=== PATIENT | male | born 1990 | race Caucasian/White ===

== ENCOUNTER 2016-07-23 13:11 | Emergency (ER) | payer MEDICAID ==
[~2016-07-23] VITALS: Ht 190.5 cm; Wt 67.5 kg
[~2016-07-23 13:11] MED LIST: BACL-19; DIAZ2TAB PO; HYDR-3241; MORP15TA39 PO; NORT10CA; OXYC10TA6 PO; OXYC7.5T; [UNRECOGNIZED DRUG - CODE]
[2016-07-23 13:12] VITALS: BP 112/81
== END 2016-07-23 15:00 | disposition home or self-care (01) ==
LOC: ED 14:40
DX: S76.012A Strain of muscle, fascia and tendon of left hip, initial encounter (principal); M54.16 Radiculopathy, lumbar region; G89.29 Other chronic pain; X58.XXXA Exposure to other specified factors, initial encounter; Y93.89 Activity, other specified; Y92.89 Other specified places as the place of occurrence of the external cause; Y99.9 Unspecified external cause status
CPT/HCPCS: 99284

== ENCOUNTER 2016-09-15 09:39 | Emergency (ER) | payer MEDICAID ==
[~2016-09-15] VITALS: Ht 190.5 cm; Wt 68.4 kg
[2016-09-15] MEDS ORDERED: HYDROcodone/APAP 5/325 TABLET PO ONE (10:30)
[2016-09-15] MEDS ORDERED: HYDROcodone/APAP 5/325 TABLET ONE (10:33)
[2016-09-15 11:05] VITALS: BP 128/77
== END 2016-09-15 11:07 | disposition home or self-care (01) ==
LOC: ED 10:57
DX: S70.11XA Contusion of right thigh, initial encounter (principal); F17.210 Nicotine dependence, cigarettes, uncomplicated; X58.XXXA Exposure to other specified factors, initial encounter; Y93.89 Activity, other specified; Y92.89 Other specified places as the place of occurrence of the external cause; Y99.8 Other external cause status
CPT/HCPCS: 99283

== ENCOUNTER 2017-04-05 21:00 | Emergency (ER) | payer MEDICAID ==
[~2017-04-05] VITALS: Ht 190.5 cm; Wt 75.0 kg
[~2017-04-05 21:00] MED LIST changes: +MORP-52 PO; -MORP15TA39 PO
[2017-04-05] MEDS ORDERED: TRAM100T13 PO (21:19)
[2017-04-05] MEDS ORDERED: MORP-52 PO (21:19)
[2017-04-05] MEDS ORDERED: SODIUM CHLORIDE FLUSH 10ML SYR IVF ONE (21:30)
[2017-04-05] MEDS ORDERED: MORPHINE SULFATE 4 MG/ML, 1ML IVPush PRN (21:30)
[2017-04-05] MEDS ORDERED: ONDANSETRON 2MG/ML, 2ML ONE (21:30)
[2017-04-05] MEDS ORDERED: PROMETHAZINE 25 MG/ML, 1ML IM ONE (21:30)
[2017-04-05] MEDS ORDERED: MORPHINE SULFATE 4 MG/ML, 1ML ONE (21:30)
[2017-04-05] MEDS ORDERED: SODIUM CHLORIDE 0.9% 1,000ML IV ONE (21:30)
[2017-04-05] MEDS ORDERED: DIAZEPAM 5 MG/ML, 2ML IVPush ONE (21:30)
[2017-04-05] MEDS ORDERED: PROMETHAZINE 25 MG/ML, 1ML ONE (21:30)
[2017-04-05] MEDS ORDERED: KETOROLAC 30 MG/1 ML IVPush ONE (21:30)
[2017-04-05] MEDS ORDERED: KETOROLAC 30 MG/1 ML ONE (21:30)
[2017-04-05] MEDS ORDERED: ONDANSETRON 2MG/ML, 2ML IVPush ONE (21:30)
[2017-04-05 21:43] LABS: BASOPHILS # (AUTO) 0.02 x10^3/uL (0-0.1); BASOPHILS % (AUTO) 0 % (0-1); EOSINOPHILS % (AUTO) 1 % (1-7); LYMPHOCYTES # (AUTO) 1.32 x10^3/uL (1-3.4); LYMPHOCYTES % (AUTO) 18 % (22-44); MD NO; MEAN CORPUSCULAR HEMOGLOBIN 30.4 pg (27.5-34.5); MEAN CORPUSCULAR HGB CONC 34.3 g/dL (33.2-36.2); MEAN CORPUSCULAR VOLUME 88.8 fL (81-97); MEAN PLATELET VOLUME 8.2 fL (7.4-10.4); MONOCYTES # (AUTO) 0.78 x10^3/uL (0.2-0.8); MONOCYTES % (AUTO) 11 % (2-9); NEUTROPHILS # (AUTO) 5.05 x10^3/uL (1.8-6.8); NEUTROPHILS % (AUTO) 69 % (42-75); PLATELET COUNT 226 x10^3/uL (130-400); RED BLOOD COUNT 5.54 x10^6/uL (4.38-5.82); RED CELL DISTRIBUTION WIDTH 12.7 % (9.4-14.8)
[2017-04-05 21:52] LABS: ALBUMIN 4.1 g/dL (3.4-5.0); ANION GAP 6 mmol/L (5-15); CALCIUM 8.7 mg/dL (8.5-10.1); CHLORIDE 110 mmol/L (98-107); CREATININE 1.09 mg/dL (0.7-1.3)
[2017-04-05 22:38] LABS: AMPHETAMINE SCREEN, URINE Negative (Negative); BARBITURATE SCREEN, URINE Negative (Negative); BENZODIAZEPINE SCREEN, URINE Negative (Negative); CANNABINOID SCREEN, URINE Negative (Negative); COCAINE SCREEN, URINE Negative (Negative); METHADONE SCREEN, URINE Negative (Negative); OPIATE SCREEN, URINE Positive (Negative)
[2017-04-05 22:55] LABS: MICROSCOPIC NOT IND
[2017-04-05 22:59] LABS: CULTURE INDICATED? NO
[2017-04-05] MEDS ORDERED: GADOBUTROL 7.5 MMOL/7.5 ML PFS ONE (23:23)
[2017-04-06 00:15] VITALS: BP 122/78
[2017-04-06] MEDS ORDERED: LIDOCAINE 1%, 10ML ONE (00:20)
== END 2017-04-06 00:33 | disposition home or self-care (01) ==
LOC: ED 21:35
DX: G89.29 Other chronic pain (principal); M54.5 Low back pain
CPT/HCPCS: 36415; 72158; 80048; 80307; 81003; 82040; 85025; 96361; 96372; 96374; 96375; 99285; A9585; J1885; J2405; J2550; J7030; G0479

== ENCOUNTER 2018-01-03 16:53 | Emergency (ER) | payer MEDICAID, OTHER ==
[~2018-01-03] VITALS: Ht 190.5 cm; Wt 68.1 kg
[~2018-01-03 16:53] MED LIST changes: +TRAM100T13 PO
[2018-01-03 17:08] VITALS: BP 128/73
[2018-01-03] MEDS ORDERED: LIDOCAINE 1%-EPI 1:100K, 20ML ONE (17:42)
[2018-01-03] MEDS ORDERED: BUPIVACAINE 0.25% ONE (17:42)
[2018-01-03] MEDS ORDERED: BUPIVACAINE/PF-EPI 0.25% 1:200K SQ ONE (18:00)
[2018-01-03] MEDS ORDERED: LIDOCAINE 1%-EPI 1:100K, 20ML SQ ONE (18:00)
[2018-01-03] MEDS ORDERED: HYDROcodone/APAP 5/325 TABLET ONE (18:08)
[2018-01-03] MEDS ORDERED: HYDROcodone/APAP 5/325 TABLET PO ONE (18:30)
== END 2018-01-03 18:21 | disposition home or self-care (01) ==
LOC: ED 18:00
DX: K02.9 Dental caries, unspecified (principal); K04.7 Periapical abscess without sinus; G89.29 Other chronic pain
CPT/HCPCS: 41800; 99283

== ENCOUNTER 2018-02-19 17:56 | Emergency (ER) | payer SELFPAY ==
[~2018-02-19] VITALS: Ht 190.5 cm; Wt 70.0 kg
[2018-02-19 18:06] VITALS: BP 126/86
[2018-02-19] MEDS ORDERED: HYDROcodone/APAP 5/325 TABLET ONE ×2 (18:15→19:57)
[2018-02-19] MEDS ORDERED: METHOCARBAMOL 750 MG TABLET ONE (18:15)
[2018-02-19] MEDS ORDERED: HYDROcodone/APAP 5/325 TABLET PO ONE ×2 (18:30→20:00)
[2018-02-19] MEDS ORDERED: METHOCARBAMOL 750 MG TABLET PO ONE (18:30)
[2018-02-19] MEDS ORDERED: ONDANSETRON ODT 4 MG ONE ×2 (18:50→19:58)
[2018-02-19] MEDS ORDERED: ONDANSETRON ODT 4 MG PO ONE (20:00)
[2018-02-19] MEDS ORDERED: KETOROLAC 30 MG/1 ML IM ONE (20:00)
[2018-02-19 20:54] LABS: MICROSCOPIC INDICATED
[2018-02-19 21:06] LABS: CULTURE INDICATED? NO
== END 2018-02-19 21:45 | disposition home or self-care (01) ==
LOC: ED 19:48
DX: N20.1 Calculus of ureter (principal)
CPT/HCPCS: 72050; 72110; 76770; 81001; 99285; Q0162

== ENCOUNTER 2018-03-05 12:03 | Emergency (ER) | payer SELFPAY ==
[~2018-03-05] VITALS: Ht 190.5 cm; Wt 73.0 kg
[2018-03-05] MEDS ORDERED: KETOROLAC 30 MG/1 ML ONE (12:18)
[2018-03-05] MEDS ORDERED: ONDANSETRON 2MG/ML, 2ML ONE (12:18)
[2018-03-05] MEDS ORDERED: KETOROLAC 30 MG/1 ML IVPush ONE (12:30)
[2018-03-05] MEDS ORDERED: MORPHINE SULFATE 4 MG/ML, 1ML IVPush PRN (12:30)
[2018-03-05] MEDS ORDERED: ONDANSETRON 2MG/ML, 2ML IVPush ONE (12:30)
[2018-03-05 12:34] LABS: BASOPHILS # (AUTO) 0.02 x10^3/uL (0-0.1); BASOPHILS % (AUTO) 0 % (0-1); EOSINOPHILS # (AUTO) 0.09 x10^3/uL (0-0.4); EOSINOPHILS % (AUTO) 1 % (1-7); LYMPHOCYTES # (AUTO) 1.33 x10^3/uL (1-3.4); LYMPHOCYTES % (AUTO) 13 % (22-44); MD NO; MEAN CORPUSCULAR HEMOGLOBIN 30.2 pg (27.5-34.5); MEAN CORPUSCULAR HGB CONC 34.2 g/dL (33.2-36.2); MEAN CORPUSCULAR VOLUME 88.3 fL (81-97); MEAN PLATELET VOLUME 8.1 fL (7.4-10.4); MONOCYTES # (AUTO) 0.45 x10^3/uL (0.2-0.8); MONOCYTES % (AUTO) 4 % (2-9); NEUTROPHILS # (AUTO) 8.47 x10^3/uL (1.8-6.8); NEUTROPHILS % (AUTO) 82 % (42-75); PLATELET COUNT 254 x10^3/uL (130-400); RED BLOOD COUNT 5.61 x10^6/uL (4.38-5.82); RED CELL DISTRIBUTION WIDTH 13.2 % (9.4-14.8)
[2018-03-05 12:42] LABS: ALBUMIN 4.4 g/dL (3.4-5.0); ANION GAP 14 mmol/L (5-15); CALCIUM 9.2 mg/dL (8.5-10.1); CHLORIDE 109 mmol/L (98-107); CREATININE 1.05 mg/dL (0.7-1.3)
[2018-03-05 13:14] LABS: CULTURE INDICATED? YES; MICROSCOPIC INDICATED
[2018-03-05 14:30] VITALS: BP 109/69
== END 2018-03-05 14:33 | disposition home or self-care (01) ==
LOC: ED 12:03
DX: N20.1 Calculus of ureter (principal); Z88.1 Allergy status to other antibiotic agents; F17.210 Nicotine dependence, cigarettes, uncomplicated; M54.16 Radiculopathy, lumbar region
CPT/HCPCS: 36415; 74176; 80048; 81001; 82040; 85025; 87086; 96374; 96375; 99284; J1885; J2405

== ENCOUNTER 2019-09-21 20:56 | Emergency (ER) | payer BC, OTHER ==
[~2019-09-21] VITALS: Ht 193 cm; Wt 65.4 kg
--- NOTE | 2019-09-21 21:14 | NUR ---
PT SITTING IN BED, RESPIRATIONS EVEN AND UNLABORED, TALKING WITH ERP.
[2019-09-21] MEDS ORDERED: CYCL-259 PO (21:23)
[2019-09-21] MEDS ORDERED: OXYC-295 PO (21:23)
[2019-09-21] MEDS ORDERED: PREG75CA PO (21:23)
--- NOTE | 2019-09-21 21:23 | NUR ---
PT STATES HE HAD A STOMACH ACHE YESRDAY MORNING WHEN HE WOKE UP AND HASN'T BEEN ABLE TO KEEP ANYTHING DOWN SINCE BREAKFAST YESTERDAY. PT STATES HE'S BEEN DRY-HEAVING AND HAVING LOOSE STOOLS INTERMITTENTLY TODAY. VOMIT BACK IN HAND, EDUCATED ON WHERE THE BATHROOM IS. PT UPDATE ON POC, ALL QUESTIONS ANSWERED AT THIS TIME. WILL CONTINUE TO MONITOR AND WATCH FOR ORDERS.
[2019-09-21] MEDS ORDERED: ONDANSETRON 2MG/ML, 2ML IVPush ONE (21:30)
[2019-09-21] MEDS ORDERED: SODIUM CHLORIDE 0.9% 1,000ML IVBOLUS ONE (21:30)
[2019-09-21] MEDS ORDERED: MORPHINE SULFATE 4 MG/ML, 1ML ONE ×2 (21:46→23:05)
[2019-09-21] MEDS ORDERED: ONDANSETRON 2MG/ML, 2ML ONE (21:46)
[2019-09-21 21:54] LABS: BASOPHILS # (AUTO) 0.02 x10^3/uL (0-0.1); BASOPHILS % (AUTO) 0 % (0-1); EOSINOPHILS # (AUTO) 0.16 x10^3/uL (0-0.4); EOSINOPHILS % (AUTO) 2 % (1-7); LYMPHOCYTES # (AUTO) 1.63 x10^3/uL (1-3.4); LYMPHOCYTES % (AUTO) 21 % (22-44); MD NO; MEAN CORPUSCULAR HEMOGLOBIN 31.1 pg (27.5-34.5); MEAN CORPUSCULAR VOLUME 91.4 fL (81-97); MEAN PLATELET VOLUME 8.9 fL (7.4-10.4); MONOCYTES # (AUTO) 0.52 x10^3/uL (0.2-0.8); MONOCYTES % (AUTO) 7 % (2-9); NEUTROPHILS # (AUTO) 5.63 x10^3/uL (1.8-6.8); NEUTROPHILS % (AUTO) 71 % (42-75); PLATELET COUNT 220 x10^3/uL (130-400); RED BLOOD COUNT 5.32 x10^6/uL (4.38-5.82); RED CELL DISTRIBUTION WIDTH 13.3 % (9.4-14.8)
[2019-09-21] MEDS: MORPHINE SULFATE 4 MG/ML, 1ML IVPush PRN ×2 (21:59→23:07)
[2019-09-21 22:03] LABS: ALANINE AMINOTRANSFERASE 17 U/L (12-78); ALBUMIN 3.8 g/dL (3.4-5.0); ANION GAP 7 mmol/L (5-15); CALCIUM 8.6 mg/dL (8.5-10.1); CHLORIDE 107 mmol/L (98-107); CREATININE 1.02 mg/dL (0.7-1.3)
[2019-09-21 22:05] LABS: ALKALINE PHOSPHATASE 59 U/L (45-117); BILIRUBIN,TOTAL 0.6 mg/dL (0.2-1.0); TOTAL PROTEIN 7.3 g/dL (6.4-8.2)
[2019-09-21 22:20] LABS: MICROSCOPIC INDICATED
--- NOTE | 2019-09-21 22:29 | NUR ---
PT BACK FROM IMAGING, CONDITION UNCHANGED.
[2019-09-21] MEDS ORDERED: OMNIPAQUE 350 MG/ML, 100ML BOTTLE ONE (22:31)
--- NOTE | 2019-09-21 23:01 | NUR ---
PT SITTING IN BED, WATCHING TV, NO SIGNS OF ACUTE DISTRESS, VSS, RESPIRATIONS EVEN AND UNLABORED. GIVEN WATER FOR PO CHALLENGE.
[2019-09-22 00:34] VITALS: BP 124/83
== END 2019-09-22 00:39 | disposition home or self-care (01) ==
LOC: ED 23:25
DX: A08.4 Viral intestinal infection, unspecified (principal); R19.7 Diarrhea, unspecified; F17.210 Nicotine dependence, cigarettes, uncomplicated; I10 Essential (primary) hypertension; G89.29 Other chronic pain
CPT/HCPCS: 36415; 74177; 80053; 81001; 83690; 85025; 96361; 96374; 96375; 96376; 99285; 99406; J2270; J2405; J7030; Q9967